=== PATIENT | male | born 1970 | race Caucasian/White ===

== ENCOUNTER 2017-01-01 08:28 | Emergency (ER) | payer OTHER ==
[~2017-01-01] VITALS: Ht 165.1 cm; Wt 83.5 kg
[~2017-01-01 08:28] MED LIST: ACET325T33 PO; ACET500C5 PO; DICL50TA11 PO; HYDR-3498 PO; IBUP-1542 PO; MECL25TA2 PO
[2017-01-01 08:37] VITALS: Ht 165.1 cm; Wt 83.5 kg
[2017-01-01] MEDS ORDERED: DICY10CA60 PO (09:22)
[2017-01-01] MEDS ORDERED: LOPE2CAP PO (09:23)
[2017-01-01] MEDS ORDERED: ELEC100080 PO (09:24)
--- NOTE | 2017-01-01 09:31 | ERD ---
ER Documentation Chief Complaint Date/Time DATE: 01/01/17 TIME: 09:28 Chief Complaint AP AND DIARRHEA HPI This is a 46-year-old male presents to the emergency department today complaining of diarrhea for the past 24 hours. States it started yesterday morning after eating [place] food. States that his young son has had some vomiting and diarrhea as well. Denies any fever or chills, vomiting. States " I think I need antibiotics" ROS All systems reviewed and are negative except as per history of present illness. Medications Home Meds Active Scripts Electrolyte,Oral (Pedialyte) 1,000 Ml Solution, 100 ML PO Q6 Y for DIARRHEA, # 1000 ML Prov:KHOA CROTF PA-C 01/01/17 Loperamide Hcl* (Imodium*) 2 Mg Capsule, 2 MG PO .AFTER EA LOOSE BM Y for DIARRHEA, #8 TAB Prov:KHOA CROFT PA-C 01/01/17 Dicyclomine Hcl* (Bentyl*) 10 Mg Capsule, 10 MG PO QID, #30 CAP Prov:KHOA CROFT PA-C 01/01/17 Diclofenac Sodium* (Diclofenac Sodium*) 50 Mg Tablet.dr, 50 MG PO TID, #20 TAB Prov[facility] [place] [facility] 11/20/15 Hydrocodone Bit-Acetaminophen* ([place]*) 5-325 Mg Tab, 1 TAB PO Q6 Y for PAIN, # 15 TAB Prov[facility] [place] [facility] 11/20/15 Acetaminophen* (Tylenol*) 325 Mg Tablet, 2 TAB PO Q8 Y for PAIN AND OR ELEVATED TEMP, #20 TAB Prov:[facility] [place] [facility] 11/13/15 Ibuprofen* (Motrin*) 600 Mg Tab, 600 MG PO Q8, #30 TAB Prov:[facility] [place] [facility] 11/13/15 Acetaminophen* (Tylophen*) 500 Mg Capsule, 2 CAP PO Q8H Y for PAIN AND OR ELEVATED TEMP, #20 CAP Prov:SHANIA PIERCE 01/19/15 Meclizine Hcl* (Antivert*) 25 Mg Tablet, 25 MG PO Q6H Y for dizziness, #20 TAB Prov:SHANIA PIERCE 01/19/15 Allergies Allergies: Coded Allergies: No Known Allergy (Unverified , 01/01/17) PMhx/Soc Medical and Surgical Hx: pt denies Medical Hx, pt denies Surgical Hx History of Surgery: No Anesthesia Reaction: No Hx Neurological Disorder: No Hx Respiratory Disorders: No Hx Cardiac Disorders: No Hx Psychiatric Problems: No Hx Miscellaneous Medical Probl: No Hx Alcohol Use: No Hx Substance Use: No Hx Tobacco Use: No Smoking Status: Never smoker Physical Exam Vitals Vital Signs Date Time Temp Pulse Resp B/P Pulse Ox O2 Delivery O2 Flow Rate FiO2 01/01/17 08:37 97.8 79 18 120/87 98 Physical Exam Const: No acute distress Head: Atraumatic Eyes: Normal Conjunctiva ENT: Normal External Ears, Nose and Mouth. Neck: Full range of motion..~ No meningismus. Resp: Clear to auscultation bilaterally Cardio: Regular rate and rhythm, no murmurs Abd: Soft, non tender, non distended. Normal bowel sounds. No right lower quadrant pain. No tenderness McBurney's. No left lower quadrant pain. Skin: No petechiae or rashes Neur: Awake and alert Psych: Normal Mood and Affect Procedures/MDM This 46-year-old male who presents to the emergency department today complaining of diarrhea for the past 24 hours. Patient is afebrile and otherwise well-appearing. She has had no vomiting. Do not feel the patient requires laboratory workup or imaging especially given that patient child has had some vomiting and diarrhea as well. Patient has no abdominal pain on physical exam and have low suspicion for acute surgical abdomen, diverticulitis. Patient symptoms at this time is consistent with diarrhea likely viral. I have explained this to the patient. I do not feel he requires antibiotics at this time. Patient was given a prescription for Pedialyte, Bentyl and a very short course of Imodium. I explained to him that I would prefer that he not use this and just take the Bentyl. Patient understood. At this time the patient is stable for discharge and outpatient management. Patient should follow up with their PCP in the next 1-2 days. They may return to the emergency department sooner for any persistent or worsening of symptoms. Patient understood and agreed with the plan. Departure Diagnosis: Primary Impression: Diarrhea Diarrhea type: unspecified type Qualified Code: R19.7 - Diarrhea, unspecified type Condition: Fair Patient Instructions: Self-Care for Vomiting and Diarrhea Referrals: ELIAS NOBLE (PCP) Additional Instructions: Llame al doctor MAANA y aston scooter AYAN PARA DENTRO DE 1-2 DOYLE.Dgale a la secretaria que nosotros le instruimos hacer esta ayan.Avise o llame si wang condicin se empeora antes de la ayan. Regresa aqui si peor o no mejor. Take Imodium only as absolutely needed for diarrhea but try not to take it Take Bentyl as prescribed Take Pedialyte as prescribed and drink plenty of Gatorade and clear fluid KHOA CROFT PA-C Jan 01, 2017 09:31
== END 2017-01-01 09:27 | disposition home or self-care (01) ==
LOC: FTE 08:28
DX: R19.7 Diarrhea, unspecified (principal)
CPT/HCPCS: 99283

== ENCOUNTER 2019-03-10 10:23 | Emergency (ER) | payer OTHER ==
[~2019-03-10] VITALS: Ht 162.6 cm; Wt 82.4 kg
[~2019-03-10 10:23] MED LIST changes: +AMOX1TAB9 PO; +DICY10CA40 PO; +ELEC100080 PO; +LOPE2CAP PO; +METR500T PO
[2019-03-10 10:24] VITALS: BP 129/81; PULSE 89; RESP 18; Ht 162.6 cm; Wt 82.4 kg
[2019-03-10] MEDS ORDERED: SOD CHLORIDE 0.9% 500 ML IV STA (11:48)
[2019-03-10] MEDS ORDERED: KETOROLAC 30 MG INJ IV STA (11:48)
[2019-03-10] MEDS ORDERED: metroNIDAZOLE 500 MG TAB PO ONE (13:00)
[2019-03-10] MEDS ORDERED: AMOXICILLIN/CLAV 500 MG TAB PO ONE (13:00)
--- NOTE | 2019-03-10 13:01 | ERD ---
ER Documentation Chief Complaint Chief Complaint AP X 2 DAYS HPI 48-year-old male presents the emergency department complaining of abdominal pain. Patient states that over the last 2 days he has had a diffuse, nonspecific but mostly right lower quadrant type abdominal pain. The pain is been associated with no significant fevers or chills, nausea or vomiting or anorexia and he tells me he has been eating normally. He states he has normal bowel movements and normal urination. There is no hematuria. The pain is now localized to the right lower quadrant described as mild to moderate. ROS All systems reviewed and are negative except as per history of present illness. Medications Home Meds Active Scripts Metronidazole* (Flagyl*) 500 Mg Tablet, 500 MG PO TID for 10 Days, TAB Prov:LAURIE MALONEY 03/10/19 Amoxicillin/Potassium Clav (Amox-Clav 500-125 mg Tablet) 500-125 mg Tab, 1 TAB PO BID for 10 Days, TAB Prov:LAURIE MALONEY 03/10/19 Electrolyte,Oral (Pedialyte) 1,000 Ml Solution, 100 ML PO Q6 PRN for DIARRHEA, #1000 ML Prov:KHOA CROFT PA-C 01/01/17 Loperamide Hcl* (Imodium*) 2 Mg Capsule, 2 MG PO .AFTER EA LOOSE BM PRN for DIARRHEA, #8 TAB Prov:KHOA CROFT PA-C 01/01/17 Dicyclomine HCl (Dicyclomine HCl) 10 Mg Capsule, 10 MG PO QID, #30 CAP Prov:KHOA CROFT PA-C 01/01/17 Diclofenac Sodium* (Diclofenac Sodium*) 50 Mg Tablet.dr, 50 MG PO TID, #20 TAB Prov:SHARMIN HALL DO 11/20/15 Hydrocodone Bit-Acetaminophen* ([place]*) 5-325 Mg Tab, 1 TAB PO Q6 PRN for PAIN, #15 TAB Prov:SHARMIN HALL DO 11/20/15 Acetaminophen* (Tylenol*) 325 Mg Tablet, 2 TAB PO Q8 PRN for PAIN AND OR ELEVATED TEMP, #20 TAB Prov:SHARMIN HALL DO 11/13/15 Ibuprofen* (Motrin*) 600 Mg Tab, 600 MG PO Q8, #30 TAB Prov:SHARMIN HALL DO 11/13/15 Acetaminophen* (Tylophen*) 500 Mg Capsule, 2 CAP PO Q8H PRN for PAIN AND OR ELEVATED TEMP, #20 CAP Prov:SHANIA PIERCE 01/19/15 Meclizine Hcl* (Antivert*) 25 Mg Tablet, 25 MG PO Q6H PRN for dizziness, #20 TAB Prov:SHANIA PIERCE 01/19/15 Allergies Allergies: Coded Allergies: No Known Allergy (Unverified , 01/01/17) PMhx/Soc History of Surgery: No Anesthesia Reaction: No Hx Neurological Disorder: No Hx Respiratory Disorders: No Hx Cardiac Disorders: Yes (Hyperlipidemia) Hx Psychiatric Problems: No Hx Miscellaneous Medical Probl: No Hx Alcohol Use: No Hx Substance Use: No Hx Tobacco Use: No Smoking Status: Never smoker FmHx Noncontributory for chief complaint Physical Exam Vitals Vital Signs Date Temp Pulse Resp B/P (MAP) Pulse Ox O2 O2 Flow FiO2 Time Delivery Rate 03/10/19 99.5 89 18 129/81 99 10:24 (97) Physical Exam GENERAL: The patient is well developed and appropriate for usual state of health in no apparent distress HEENT: Pupils equal, round, and reactive to light. EOMI. There is no scleral ic terus. NECK: C-spine is soft and supple, there is no meningismus. There is no cervical lymphadenopathy. LUNGS: Clear to auscultation bilaterally. There are no rales, wheezes or rhonchi. HEART: Regular rate and rhythm, no murmurs, clicks, rubs or gallops. ABDOMEN: Soft, nondistended. Patient has right lower quadrant tenderness with no rebound guarding or peritonitis. EXTREMITIES: There is no peripheral cyanosis or edema. No focal swelling or erythema. NEURO: The patient moves all four extremities with 5/5 strength. Cranial nerves II - XII are intact. Normal gait. Alert and oriented SKIN: There is no apparent rash or petechiae. HEME/LYMPHATIC: There is no evidence of excessive bruising or lymphedema. PSYCHIATRIC: The patient does not appear anxious or depressed. Result Diagram: 03/10/19 1159 03/10/19 1159 Results 24 hrs Laboratory Tests Test 03/10/19 11:59 White Blood Count 12.6 10^3/ul Red Blood Count 5.07 10^6/ul Hemoglobin 16.1 g/dl Hematocrit 46.3 % Mean Corpuscular Volume 91.3 fl Mean Corpuscular Hemoglobin 31.8 pg Mean Corpuscular Hemoglobin Concent 34.8 g/dl Red Cell Distribution Width 12.3 % Platelet Count 266 10^3/UL Mean Platelet Volume 9.9 fl Immature Granulocytes % 0.300 % Neutrophils % 62.3 % Lymphocytes % 25.3 % Monocytes % 10.8 % Eosinophils % 1.0 % Basophils % 0.3 % Nucleated Red Blood Cells % 0.0 /100WBC Immature Granulocytes # 0.040 10^3/ul Neutrophils # 7.9 10^3/ul Lymphocytes # 3.2 10^3/ul Monocytes # 1.4 10^3/ul Eosinophils # 0.1 10^3/ul Basophils # 0.0 10^3/ul Nucleated Red Blood Cells # 0.0 10^3/ul Urine Color YELLOW Urine Clarity TURBID Urine pH 9.0 Urine Specific [place] 1.017 Urine Ketones NEGATIVE mg/dL Urine Nitrite NEGATIVE mg/dL Urine Bilirubin NEGATIVE mg/dL Urine Urobilinogen NEGATIVE mg/dL Urine Leukocyte Esterase NEGATIVE Mina/ul Urine Microscopic RBC 0 /HPF Urine Microscopic WBC 11 /HPF Urine Amorphous Crystals FEW /HPF Urine Mucus FEW /HPF Urine Hemoglobin NEGATIVE mg/dL Urine Glucose NEGATIVE mg/dL Urine Total Protein NEGATIVE mg/dl Sodium Level 138 mmol/L Potassium Level 3.9 mmol/L Chloride Level 105 mmol/L Carbon Dioxide Level 27 mmol/L Anion Gap 6 Blood Urea Nitrogen 16 mg/dl Creatinine 0.83 mg/dl Est Glomerular Filtrat Rate mL/min > 60 mL/min Glucose Level 126 mg/dl Calcium Level 9.2 mg/dl Total Bilirubin 1.1 mg/dl Direct Bilirubin 0.00 mg/dl Indirect Bilirubin 1.1 mg/dl Aspartate Amino Transf (AST/SGOT) 37 IU/L Alanine Aminotransferase (ALT/SGPT) 54 IU/L Alkaline Phosphatase 93 IU/L Total Protein 8.0 g/dl Albumin 4.2 g/dl Globulin 3.80 g/dl Albumin/Globulin Ratio 1.10 Lipase 118 U/L Current Medications Medications Dose Sig/Edilia Start Time Status Last (Trade) Ordered Route PRN Stop Time Admin Dose Reason Admin Sodium 500 ml @ Q1H STAT 03/10/19 DC 03/10/19 Chloride 500 mls/hr IV 11:48 12:02 03/10/19 12:47 Ketorolac 30 mg ONCE STAT 03/10/19 DC 03/10/19 Tromethamine IV 11:48 12:08 (Toradol) 03/10/19 11:49 500 mg ONCE ONCE 03/10/19 Amoxicillin/ PO 13:00 Clavulanate 03/10/19 13:01 Potassium (Augmentin) 500 mg ONCE ONCE 03/10/19 Metronidazole PO 13:00 (Flagyl) 03/10/19 13:01 Procedures/MDM Patient was taken to a room, seen and evaluated. Comfort measures were ini tiated. Diagnostic tests were ordered and reviewed. 3 LEAD RHYTHM STRIP: Normal sinus rhythm without ectopy RADIOLOGY: Reviewed with the radiologist REEVALUATION: 1300: Diagnostic tests were appreciated and discussed with the patient. Serial examinations of his abdomen remained relatively benign with only minimal right lower quadrant tenderness but no signs of perforation or peritonitis. He appeared comfortable. He was offered both inpatient and outpatient opportunities but states he felt well and wished to be discharged. MEDICAL DECISION MAKING: Patient presents with abdominal pain of uncertain etiology. Differential diagnosis considered includes appendicitis, diverticulitis, cholecystitis and other intra-abdominal medical and surgical concerns. I have reviewed the patients lab studies and imaging as well as multiple examinations of the abdomen. At this time, diagnostic test confirmed diverticulitis without abscess or perforation. His pain is well controlled and he is able to tolerate p.o.'s and therefore I feel that outpatient antibiotics are a possibility. Patient is more comfortable taking outpatient antibiotics and will be discharged home at this time. Departure Diagnosis: Primary Impression: Diverticulitis Condition: Stable Patient Instructions: Diverticulitis Additional Instructions: Consulte a wang mdico para el seguimiento segn lo discutido. Lleve scooter copia de los resultados de wang prueba, si corresponde, a esta visita de seguimiento. Consulte a wang mdico o regrese aqu si marlena sntomas no mejoran jim se esperaba. En cualquier momento, regrese al departamento de emergencias por cualquier cambio o empeoramiento en marlena sntomas. LAURIE MALONEY Mar 10, 2019 13:01
== END 2019-03-10 13:22 | disposition home or self-care (01) ==
LOC: E/R 10:23
DX: K57.92 Diverticulitis of intestine, part unspecified, without perforation or abscess without bleeding (principal)
CPT/HCPCS: 36415; 74176; 80053; 81001; 83690; 85025; 96374; 99285; J1885; J7040

== ENCOUNTER 2019-04-17 15:54 | Emergency (ER) | payer OTHER ==
[~2019-04-17] VITALS: Wt 85.9 kg
[2019-04-17 15:54] VITALS: BP 134/98; PULSE 72; RESP 20; Wt 85.9 kg
== END 2019-04-17 17:19 | disposition home or self-care (01) ==
LOC: FTE 15:54
DX: R10.9 Unspecified abdominal pain (principal)
CPT/HCPCS: 99282